=== PATIENT | female | born 1940 | race Caucasian/White ===

== ENCOUNTER → 2016-07-10 | Outpatient (CLI) | payer MEDICARE, BC ==
--- NOTE | 2016-07-11 07:52 | US ---
EXAMINATION TYPE: US thyroid st tissue head/neck DATE OF EXAM: 07/10/2016 3:05 PM COMPARISON: NONE CLINICAL HISTORY: E04.1 THYROID NODULE,E78.5,I10 HTN,T86.10 RENAL TRANSPLANT. physician felt nodules GLAND SIZE: Right Lobe: 3.6 x 0.9 x 1.5 cm Overall Parenchyma: heterogenous Left Lobe: 3.4 x 0.9 x 1.2 cm Overall Parenchyma: heterogeneous NODULES RIGHT: # of nodules measured on right: 0 LEFT: # of nodules measured on left: 1 1. 0.7 X 0.5 x 0.3 cm hypoechoic solid nodule at the upper pole with well-defined margins. This no dule is wider than tall and shows intranodular vascularity. Prior size: GR[employer]ERY BU[employer]ER ISTHMUS: # of nodules measured in the isthmus: 2 1. 2.0 X 2.2 x 1.7 cm isoechoic solid nodule with well-defined margins. This nodule is wider than tall and shows no intranodular vascularity. Prior size: GR[employer]ERY BUYER 2. 1.3 X 1.6 x 1.5 cm hypoechoic solid nodule with well-defined margins. This nodule is wider than tall and shows no intranodular vascularity. Prior size: GROCERY BUYER Bilateral neck scanned, no evidence of lymphadenopathy. IMPRESSION: 1. Multiple nodules bilateral thyroid lobes. Consider correlation with nuclear medicine scan and labo ratory results.
== END | disposition home or self-care (01) ==
LOC: RADUSWWP 14:46
PROVIDERS: ATTEND Internal Medicine
DX: E04.2 Nontoxic multinodular goiter (principal); E78.5 Hyperlipidemia, unspecified; I10 Essential (primary) hypertension; T86.10 Unspecified complication of kidney transplant
CPT/HCPCS: 76536

== ENCOUNTER → 2016-10-09 | Outpatient (CLI) | payer MEDICARE, BC ==
[2016-10-09 09:35] LABS: Cholesterol 183 mg/dL (<200); HDL Cholesterol 67 mg/dL (40-60)
== END ==
LOC: LABWHC1 08:53
PROVIDERS: ATTEND Internal Medicine
DX: E78.5 Hyperlipidemia, unspecified (principal)
CPT/HCPCS: 36415; 80061

== ENCOUNTER → 2016-12-17 | Outpatient (CLI) | payer MEDICARE, BC ==
[2016-12-17 10:11] LABS: Appearance,Urine Clear (Clear); Bilirubin,Urine Negative (Negative); Glucose,Urine (UA) Negative (Negative); Ketones,Urine Negative (Negative); Leukocyte Esterase,Urine Small (Negative); Mucus,Urine Rare /hpf; Nitrite,Urine Negative (Negative); Particle Count 1412; Protein,Urine Negative (Negative); RBC,Urine 1 /hpf (0-5); Specific Gravity,Urine 1.013 (1.001-1.035); Squamous Epithelial Cell,Urine <1 /hpf (0-4); UA Billing (MACRO vs. MICRO) MICRO; Urobilinogen,Urine <2.0 mg/dL (<2.0); WBC,Urine 15 /hpf (0-5)
[2016-12-17 10:13] LABS: Basophils % (A) 0 %; CH 30.9; CHCM 31.8; Eosinophils # (A) 0.2 k/uL (0-0.7); Eosinophils % (A) 3 %; HCT 49.1 % (34.0-46.0); HDW 2.35; HGB 15.4 gm/dL (11.4-16.0); Luc # (Auto) 0.12; Luc % (Auto) 2; Lymphocytes # (A) 1.8 k/uL (1.0-4.8); Lymphocytes % (A) 23 %; MCH 30.6 pg (25.0-35.0); MCHC 31.3 g/dL (31.0-37.0); MCV 97.6 fL (80.0-100.0); Mean Platelet Volume 7.1; Monocytes # (A) 0.6 k/uL (0-1.0); Monocytes % (A) 8 %; Neutrophils % (A) 65 %; RBC 5.03 m/uL (3.80-5.40); RDW 11.9 % (11.5-15.5); WBC 7.7 k/uL (3.8-10.6); WBC (Perox) 7.74
[2016-12-17 16:36] LABS: ALT 62 U/L (9-52); AST 38 U/L (14-36); Alkaline Phosphatase 96 U/L (38-126); Anion Gap 14 mmol/L; Blood Urea Nitrogen 19 mg/dL (7-17); Calcium 10.2 mg/dL (8.4-10.2); Carbon Dioxide 25 mmol/L (22-30); Chloride 100 mmol/L (98-107); Cholesterol 177 mg/dL (<200); Glucose 215 mg/dL (74-99); HDL Cholesterol 60 mg/dL (40-60); Magnesium 1.9 mg/dL (1.6-2.3); Non-African American GFR(MDRD) >60 (>60 ml/min/1.73 sqM); Phosphorus 4.8 mg/dL (2.5-4.5); Potassium 5.4 mmol/L (3.5-5.1); Sodium 139 mmol/L (137-145); Total Bilirubin 0.6 mg/dL (0.2-1.3); Total Protein 7.2 g/dL (6.3-8.2)
[2016-12-21 09:05] LABS: Mis test requested (Blood) BK QUANT PCR
== END | disposition home or self-care (01) ==
LOC: LABWHC1 08:48
PROVIDERS: ATTEND Internal Medicine Nephrology
DX: E55.9 Vitamin D deficiency, unspecified (principal); E78.5 Hyperlipidemia, unspecified; N39.0 Urinary tract infection, site not specified; E21.3 Hyperparathyroidism, unspecified; Z79.899 Other long term (current) drug therapy; Z11.59 Encounter for screening for other viral diseases; Z51.81 Encounter for therapeutic drug level monitoring; Z13.89 Encounter for screening for other disorder; Z94.0 Kidney transplant status
CPT/HCPCS: 36415; 80053; 80061; 80197; 81001; 82306; 82570; 83735; 83970; 84100; 84156; 85025; 87086; 87799

== ENCOUNTER → 2017-05-30 | Outpatient (CLI) | payer MEDICARE, BC ==
[2017-05-30 10:10] LABS: Appearance,Urine Clear (Clear); Bilirubin,Urine Negative (Negative); Blood,Urine Negative (Negative); Color,Urine Light Yellow; Glucose,Urine (UA) Negative (Negative); Hyaline Casts,Urine 1 /lpf (0-2); Ketones,Urine Negative (Negative); Leukocyte Esterase,Urine Trace (Negative); Nitrite,Urine Negative (Negative); Protein,Urine Negative (Negative); RBC,Urine <1 /hpf (0-5); Specific Gravity,Urine 1.012 (1.001-1.035); Squamous Epithelial Cell,Urine <1 /hpf (0-4); Urobilinogen,Urine <2.0 mg/dL (<2.0); WBC,Urine 5 /hpf (0-5)
[2017-05-30 10:19] LABS: Basophils % (A) 1 %; Eosinophils # (A) 0.2 k/uL (0-0.7); Eosinophils % (A) 2 %; HCT 45.5 % (34.0-46.0); HGB 15.1 gm/dL (11.4-16.0); Lymphocytes # (A) 1.9 k/uL (1.0-4.8); Lymphocytes % (A) 27 %; MCH 30.8 pg (25.0-35.0); MCHC 33.2 g/dL (31.0-37.0); Mean Platelet Volume 7.1; Monocytes # (A) 0.5 k/uL (0-1.0); Monocytes % (A) 7 %; Neutrophils # (A) 4.3 k/uL (1.3-7.7); Neutrophils % (A) 61 %; Platelet Count 294 k/uL (150-450); RDW 12.2 % (11.5-15.5); WBC 7.1 k/uL (3.8-10.6)
[2017-05-30 10:20] LABS: Albumin 4.5 g/dL (3.5-5.0); Calcium 10.1 mg/dL (8.4-10.2); Magnesium 1.8 mg/dL (1.6-2.3); Phosphorus 3.8 mg/dL (2.5-4.5); Potassium 5.4 mmol/L (3.5-5.1); Total Bilirubin 0.8 mg/dL (0.2-1.3); Total Protein 6.8 g/dL (6.3-8.2)
[2017-05-30 10:49] LABS: Creatinine,Urine Random 53.3 mg/dL
[2017-05-30 16:18] LABS: Vitamin D 25 Hydroxy 40.5 ng/mL (30.0-100.0)
[2017-05-30 16:42] LABS: Parathyroid Hormone Intact 48.1 pg/mL (14.0-72.0)
== END | disposition home or self-care (01) ==
LOC: LABWHC1 08:57
PROVIDERS: ATTEND Internal Medicine Nephrology
DX: E55.9 Vitamin D deficiency, unspecified (principal); E21.3 Hyperparathyroidism, unspecified; E78.5 Hyperlipidemia, unspecified; N39.0 Urinary tract infection, site not specified; Z51.81 Encounter for therapeutic drug level monitoring; Z11.59 Encounter for screening for other viral diseases; Z13.89 Encounter for screening for other disorder; Z79.899 Other long term (current) drug therapy; Z94.0 Kidney transplant status
CPT/HCPCS: 36415; 80053; 80061; 80197; 81001; 82306; 82570; 83735; 83970; 84100; 84156; 85025; 87086; 87799

== ENCOUNTER → 2017-06-18 | Outpatient (CLI) | payer MEDICARE, BC ==
[2017-06-18 12:04] LABS: T4, Free (Free Thyroxine) 1.01 ng/dL (0.78-2.19)
[2017-06-18 19:06] LABS: Hemoglobin A1C 7.7 % (4.0-6.0)
== END | disposition home or self-care (01) ==
LOC: LABWHC1 11:00
PROVIDERS: ATTEND Internal Medicine
DX: E11.9 Type 2 diabetes mellitus without complications (principal); E03.9 Hypothyroidism, unspecified
CPT/HCPCS: 36415; 83036; 84439; 84443

== ENCOUNTER → 2017-06-18 | Outpatient (CLI) | payer MEDICARE, BC ==
--- NOTE | 2017-06-18 15:39 | BD ---
EXAMINATION TYPE: MG DEXA axial skeleton. 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 History of Fracture in Adulthood: yes: wrist...ankle Secondary Osteoporosis: 1. Type 1 Diabetes: no 2. Hyperthyroidism: no 3. Menopause before 45: no 4. Malnutrition: no 5. Chronic liver disease: no Rheumatoid Arthritis: no Current Tobacco Use: no RISK FACTORS HISTORY OF: History of Wrist Fracture: yes When: about 4 years ago Surgery to Spine/Hip(right/left)/Wrist (right/left): no Family History of Osteoporosis: no Active: yes Diet low in dairy products/other sources of calcium: averages about one serving a day Postmenopausal woman: yes Take estrogen and/or progesterone medications: not now How long: about 8-10 years Lost more than 2 inches in height since high school: no Frequent falls: no Poor Health: no Hyperparathyroidism: no Adrenal Insufficiency: no MEDICATIONS: Prednisone or other steroids: yes How Long: over 5 years Thyroid Medications: no Osteoporosis Medications: not now Which medication: Fosamax How Long: about one year Additional Medications: vitamin D ; blood pressure meds; cholesterol meds; prednisone; ; transplant m eds Additional History: hysterectomy age 36; both ovaries removed age 51; 2010 kidney transplant EXAM MEASUREMENTS: Bone mineral densitometry was performed using the [employer]. Bone mineral density as measured about the Lumbar spine is: ----- L1-L4(G/cm2): 1.181 T Score Values are as follows: ----- L2: 0.3 ----- L3: -0.3 ----- L4: -0.2 ----- L1-L4: 0.0 Bone mineral density has: Increased 0.8% since study of: 03/22/2014 Bone mineral density about the R hip (g/cm2): 0.790 Bone mineral density about the L hip (g/cm2): 0.710 T Score values are as follows: -----R Neck: -1.8 -----L Neck: -2.4 -----R Total: -1.8 -----L Total: -2.1 Bone mineral density has: stayed the same: 0.0% since study of: 03/22/2014 IMPRESSION: Osteopenia about the bilateral femora. NOTE: T-SCORE=SD OF THE YOUNG ADULT MEAN.
== END | disposition home or self-care (01) ==
LOC: RADBDWWP 10:08
PROVIDERS: ATTEND Nurse Practitioner
DX: Z09 Encounter for follow-up examination after completed treatment for conditions other than malignant neoplasm (principal); M85.852 Other specified disorders of bone density and structure, left thigh; M85.851 Other specified disorders of bone density and structure, right thigh; Z79.899 Other long term (current) drug therapy; Z94.0 Kidney transplant status
CPT/HCPCS: 77080

== ENCOUNTER → 2017-11-25 | Outpatient (CLI) | payer MEDICARE, BC ==
[2017-11-25 10:14] LABS: Cholesterol 173 mg/dL (<200); HDL Cholesterol 67 mg/dL (40-60); LDL Cholesterol,Calculated 80 mg/dL (0-99); Triglycerides 129 mg/dL (<150)
[2017-11-25 19:35] LABS: Hemoglobin A1C 6.6 % (4.0-6.0)
== END ==
LOC: LABWHC1 09:34
PROVIDERS: ATTEND Internal Medicine
DX: E11.9 Type 2 diabetes mellitus without complications (principal); E78.5 Hyperlipidemia, unspecified
CPT/HCPCS: 36415; 80061; 83036

== ENCOUNTER → 2018-05-22 | Outpatient (CLI) | payer MEDICARE, BC ==
[2018-05-22 10:03] LABS: Basophils % (A) 0 %; Eosinophils # (A) 0.2 k/uL (0-0.7); Eosinophils % (A) 2 %; HCT 45.6 % (34.0-46.0); HGB 14.2 gm/dL (11.4-16.0); Lymphocytes # (A) 1.9 k/uL (1.0-4.8); Lymphocytes % (A) 26 %; MCH 30.5 pg (25.0-35.0); MCHC 31.2 g/dL (31.0-37.0); MCV 97.7 fL (80.0-100.0); Mean Platelet Volume 7.4; Monocytes # (A) 0.5 k/uL (0-1.0); Monocytes % (A) 6 %; Neutrophils # (A) 4.7 k/uL (1.3-7.7); Neutrophils % (A) 64 %; Platelet Count 294 k/uL (150-450); RBC 4.66 m/uL (3.80-5.40); RDW 12.9 % (11.5-15.5); WBC 7.4 k/uL (3.8-10.6)
[2018-05-22 16:08] LABS: Vitamin D 25 Hydroxy 48.4 ng/mL (30.0-100.0)
[2018-05-22 16:11] LABS: Albumin 4.6 g/dL (3.80-4.90); Albumin/Globulin Ratio 2.88 (1.60-3.17); Anion Gap 7.4 mmol/L (4.00-12.00); Calcium 9.6 mg/dL (8.7-10.3); Carbon Dioxide 27.6 mmol/L (21.6-31.8); Globulin 1.6 g/dL (1.6-3.3); Magnesium 1.9 mg/dL (1.5-2.4); Phosphorus 3.7 mg/dL (2.4-5.1); Potassium 4.3 mmol/L (3.5-5.5); Total Bilirubin 0.9 mg/dL (0.3-1.2); Total Protein 6.2 g/dL (6.2-8.2)
[2018-05-22 16:53] LABS: Appearance,Urine Clear (Clear); Bilirubin,Urine Negative (Negative); Blood,Urine Negative (Negative); Color,Urine Colorless; Glucose,Urine (UA) Negative (Negative); Ketones,Urine Negative (Negative); Leukocyte Esterase,Urine Negative (Negative); Nitrite,Urine Negative (Negative); Protein,Urine Negative (Negative); Specific Gravity,Urine 1.005 (1.001-1.035); Urobilinogen,Urine <2.0 mg/dL (<2.0)
[2018-05-22 17:17] LABS: Parathyroid Hormone Intact 72.5 pg/mL (14.0-72.0)
[2018-05-23 04:10] LABS: Creatinine,Urine Random 31.8 mg/dL
[2018-05-23 04:38] LABS: Total Protein,Urine Random <4.0 mg/dL (0.0-13.5)
[2018-05-23 11:58] LABS: BKV DNA (PCR), Quant <125 Copies/mL (<125); LOG BKV Copies/mL <2.10 (<2.10)
[2018-05-23 15:55] LABS: Tacrolimus (FK506) 6.3 ng/mL (5.0-20.0)
== END ==
LOC: LABWHC1 09:22
PROVIDERS: ATTEND Internal Medicine Nephrology
DX: E21.3 Hyperparathyroidism, unspecified (principal); E55.9 Vitamin D deficiency, unspecified; E78.5 Hyperlipidemia, unspecified; N39.0 Urinary tract infection, site not specified; Z13.89 Encounter for screening for other disorder; Z51.81 Encounter for therapeutic drug level monitoring; Z94.0 Kidney transplant status; Z79.899 Other long term (current) drug therapy; Z11.59 Encounter for screening for other viral diseases
CPT/HCPCS: 36415; 80053; 80061; 80197; 81003; 82306; 82570; 83735; 83970; 84100; 84156; 85025; 87086